=== PATIENT | male | born 1945 | race Two or more races ===

== ENCOUNTER → 2016-12-14 | Outpatient (CLI) | payer MEDICARE, MEDICAID ==
--- NOTE | 2016-12-15 07:33 | RADRPT ---
PROCEDURE: XR Pelvis and bilateral hips. CLINICAL INDICATION: Pain TECHNIQUE: 5 views of the pelvis and bilateral hips are available for review. COMPARISON: No prior studies are available for comparison. FINDINGS: No acute fracture or dislocation is identified. There is mild bilateral hip joint space narrowing a nd osteophyte formation. Bony mineralization is normal. Right iliac and femoral vascular stents ar e identified. Arterial atherosclerotic calcifications are noted. Small surgical clips project over the region of the left groin. 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 IMPRESSION: 1. Mild bilateral hip joint osteoarthrosis. 2. No evidence of acute fracture or dislocation. RPTAT: QQ .Yeison Maynard MD, MD Date Time Electronically viewed and signed by .Yeison Maynard MD, on 12/15/2016 07:32 .R/
== END | disposition home or self-care (01) ==
LOC: HKI 10:28
PROVIDERS: ATTEND Orthopaedic Surgery
DX: M48.06 Spinal stenosis, lumbar region (principal); M51.36 Other intervertebral disc degeneration, lumbar region; M54.16 Radiculopathy, lumbar region
CPT/HCPCS: 73523; G0463